=== PATIENT | female | born 1960 | race African-American/Black ===

== ENCOUNTER 2017-06-15 15:53 | Emergency (ER) | payer SELFPAY ==
[2017-06-15] MEDS ORDERED: GLUCAGON 1 MG/ML VIAL IM STA (16:12)
[2017-06-15] MEDS ORDERED: DEXTROSE 50% ABBOJECT 25 GM/50 ML SYRINGE ONE ×2 (16:12→16:41)
[2017-06-15] MEDS ORDERED: ONDANSETRON 4 MG/2 ML VIAL IVP STA (16:13)
[2017-06-15] MEDS ORDERED: SODIUM CHLORIDE 0.9% 1,000 ML IV ONE (16:13)
--- NOTE | 2017-06-15 16:14 | ED Physician Documentation ---
PD HPI NVD - Stated complaint Stated Complaint: LOW BLOOD SUGAR - Chief complaint Chief Complaint: General - History obtained from History obtained from: Patient - History of Present Illness Timing - onset: Yesterday Timing - details: Abrupt onset, Still present Associated symptoms: No: Fever, Abdominal pain, Chest pain, Dysuria Contributing factors: Travel (here on trip to visit caughter/son, will be returning to [place] tomorrow, then home.). No: Sick contact, Bad food Recently seen: Emergency Dept (in [place], [place] couple days ago for low blood sugar at that time.) Review of Systems Constitutional: denies: Fever Nose: denies: Rhinorrhea / runny nose, Congestion Throat: denies: Sore throat Cardiac: denies: Chest pain / pressure, Palpitations, Pedal edema, Calf pain Respiratory: denies: Cough, Wheezing GI: reports: Abdominal Pain, Nausea : denies: Dysuria, Frequency, Discharge Skin: denies: Rash PD PAST MEDICAL HISTORY - Present Medications Home Medications: Ambulatory Orders Medication Instructions Recorded Confirmed Famotidine [Pepcid] 20 mg PO BID #30 tablet 06/15/17 Ondansetron Odt [Zofran] 4 mg TL Q6H PRN #15 tablet 06/15/17 - Allergies Allergies/Adverse Reactions: Allergies Allergy/AdvReac Type Severity Reaction Status Date / Time acetaminophen [From Percocet] Allergy Unknown Verified 06/15/17 16:53 morphine Allergy Unknown Verified 06/15/17 16:53 oxycodone [From Percocet] Allergy Unknown Verified 06/15/17 16:53 PD ED PE NORMAL - Vitals Vital signs reviewed: Yes - General General: Alert and oriented X 3, No acute distress, Well developed/nourished - HEENT HEENT: Ears normal, Pharynx benign. No: Moist mucous membranes - Neck Neck: Supple, no meningeal sign, No bony TTP - Cardiac Cardiac: No murmur, No gallop, No rub, Strong equal pulses - Respiratory Respiratory: Clear bilaterally - Rectal Rectal: Deferred - Back Back: No CVA TTP - Derm Derm: Normal color, Warm and dry - Extremities Extremities: No deformity, No tenderness to palpate, Normal ROM s pain - Neuro Neuro: Alert and oriented X 3, No motor deficit, No sensory deficit, Normal speech Results - Vitals Vitals: Oxygen O2 Source Room air - Labs Labs: Laboratory Tests 06/15/17 06/15/17 06/15/17 16:02 16:45 16:45 WBC 8.4 RBC 4.02 L Hgb 12.7 Hct 39.3 MCV 98.0 MCH 31.6 H MCHC 32.2 RDW 12.9 Plt Count 212 MPV 7.8 L Neut # 7.0 H Lymph # 0.9 L [place] # 0.4 Eos # 0.1 Baso # 0.0 Absolute Nucleated RBC 0.00 Nucleated RBC % 0.0 Sodium 137 Potassium 4.1 Chloride 106 Carbon Dioxide 24 Anion Gap 7.0 BUN 11 Creatinine 1.1 H Estimated GFR (MDRD) 62 L Glucose 224 H POC Whole Bld Glucose 25 L* Calcium 8.3 L Magnesium 1.5 L Total Bilirubin 0.5 AST 18 ALT 17 Alkaline Phosphatase 95 Total Protein 6.4 L Albumin 3.3 Globulin 3.1 Albumin/Globulin Ratio 1.1 Lipase 47 Urine Color Urine Clarity Urine pH Ur Specific [place] Urine Protein Urine Glucose (UA) Urine Ketones Urine Occult Blood Urine Nitrite Urine Bilirubin Urine Urobilinogen Ur Leukocyte Esterase Ur Microscopic Review Urine Culture Comments 06/15/17 06/15/17 06/15/17 17:17 17:31 18:52 WBC RBC Hgb Hct MCV MCH MCHC RDW Plt Count MPV Neut # Lymph # [place] # Eos # Baso # Absolute Nucleated RBC Nucleated RBC % Sodium Potassium Chloride Carbon Dioxide Anion Gap BUN Creatinine Estimated GFR (MDRD) Glucose POC Whole Bld Glucose 68 L 84 Calcium Magnesium Total Bilirubin AST ALT Alkaline Phosphatase Total Protein Albumin Globulin Albumin/Globulin Ratio Lipase Urine Color LIGHT YELLOW Urine Clarity CLEAR Urine pH 6.5 Ur Specific [place] <=1.005 Urine Protein NEGATIVE Urine Glucose (UA) 250 H Urine Ketones NEGATIVE Urine Occult Blood NEGATIVE Urine Nitrite NEGATIVE Urine Bilirubin NEGATIVE Urine Urobilinogen 0.2 (NORMAL) Ur Leukocyte Esterase NEGATIVE Ur Microscopic Review NOT INDICATED Urine Culture Comments NOT INDICATED PD MEDICAL DECISION MAKING - ED course Complexity details: considered differential (has been nauseated with some vomiting, with less intake but still takin gusual insulin. 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 Is feeling better here even with low glucose. Given IV dextrose and then some sugary treats and then protein. No signs of blockage, does not seem ketotic, septic. Consider GE or gastritis. She is maintaining oral intake here, no pains. WIll hold her insulin next dose and then cut it back until oral intake improves. Decrase Lantus while sick. ), d/w patient, d/w family Departure - Departure Disposition: 01 Home, Self Care Clinical Impression: Decreased oral intake, Hypoglycemia Nausea and vomiting Qualifiers: Vomiting type: unspecified Vomiting Intractability: non-intractable Qualified Code(s): R11.2 - Nausea with vomiting, unspecified Condition: Stable Record reviewed to determine appropriate education?: Yes Instructions: ED Nausea Vomiting Prescriptions: Famotidine [Pepcid] 20 mg PO BID #30 tablet Ondansetron Odt [Zofran] 4 mg TL Q6H PRN #15 tablet PRN Reason: Nausea / Vomiting Comments: Your basic blood tests look okay here. I am presuming your nausea and vomiting are from an irritated stomach at this point. I would have you take an acid reducing medicines such as famotidine twice daily for the next week or 2. Add ondansetron if needed for nausea and vomiting. Regular food intake as able. While you are having decreased oral intake, I would decrease your insulin dosing. Hold your Humalog tonight and tomorrow see how your blood sugars are doing. If your blood sugars adequate and you are eating some food then take either the normal dose or a decreased dose such as 3 units instead of 5. I would also decrease your Lantus dose from the 20 units to 10 units for now and as your intake improves increased to 15 units. Follow-up with your primary care in the next several days. Return if worsening symptoms. Discharge Date/Time: 06/15/17 19:38
[2017-06-15] MEDS ORDERED: DEXTROSE 50% ABBOJECT 25 GM/50 ML SYRINGE IVP STA ×2 (16:41→16:42)
[2017-06-15] MEDS ORDERED: GLUCAGON 1 MG/ML VIAL ONE (16:50)
[2017-06-15] MEDS ORDERED: ONDANSETRON 4 MG/2 ML VIAL ONE (16:50)
[2017-06-15] MEDS ORDERED: WATER FOR INJECTION,STERILE 10 ML ONE (16:51)
[2017-06-15 16:55] LABS: BASOPHILS % (AUTO) 0.5 %; EOSINOPHILS # (AUTO) 0.1 10^3/uL (0.0-0.7); EOSINOPHILS % (AUTO) 0.6 %; HCT - HEMATOCRIT 39.3 % (37.0-47.0); HGB - HEMOGLOBIN 12.7 g/dL (12.0-16.0); LYMPHOCYTES # (AUTO) 0.9 10^3/uL (1.5-3.5); MEAN CORPUSCULAR HEMOGLOBIN 31.6 pg (27.0-31.0); MEAN CORPUSCULAR HGB CONC 32.2 g/dL (32.0-36.0); MEAN PLATELET VOLUME 7.8 fL (7.9-10.8); MONOCYTES # (AUTO) 0.4 10^3/uL (0.0-1.0); MONOCYTES % (AUTO) 5.1 %; NEUTROPHILS % (AUTO) 82.8 %; RED BLOOD COUNT 4.02 10^6/uL (4.20-5.40); RED CELL DISTRIBUTION WIDTH 12.9 % (12.0-15.0); UNCORRECTED WHITE BLOOD COUNT 8.4 x10^3/uL; WHITE BLOOD COUNT 8.4 x10^3/uL (4.8-10.8)
[2017-06-15 17:07] LABS: ALBUMIN/GLOBULIN RATIO 1.1 (1.0-2.2); BILIRUBIN,TOTAL 0.5 mg/dL (0.2-1.0); CALCIUM 8.3 mg/dL (8.5-10.3); CREATININE 1.1 mg/dL (0.4-1.0); MAGNESIUM 1.5 mg/dL (1.7-2.8); POTASSIUM 4.1 mmol/L (3.5-5.0); TOTAL PROTEIN 6.4 g/dL (6.7-8.2)
[2017-06-15 17:23] LABS: BILIRUBIN,URINE NEGATIVE (NEGATIVE); PH,URINE 6.5 PH (5.0-7.5)
[2017-06-15 17:24] LABS: UA CHARGE (STRIP ONLY) YES; UR CULTURE IF IND NOT INDICATED
[2017-06-15] MEDS ORDERED: FAMOTIDINE 20 MG TABLET PO STA (18:08)
[2017-06-15] MEDS ORDERED: FAMOTIDINE 20 MG TABLET ONE (18:20)
[2017-06-15 19:16] VITALS: BP 118/72
== END 2017-06-15 19:38 | disposition home or self-care (01) ==
LOC: ED 15:53
DX: R11.2 Nausea with vomiting, unspecified (principal)
CPT/HCPCS: 36415; 80053; 81003; 83690; 83735; 85025; 96361; 96374; 99284; A9270; 81001; 87086

== ENCOUNTER 2019-02-26 15:30 | Emergency (ER) | payer MEDICAID, OTHER ==
--- NOTE | 2019-02-26 16:03 | ED Physician Documentation ---
PD HPI HEENT - Stated complaint Stated Complaint: BLURRY VISION - Chief complaint Chief Complaint: General - History obtained from History obtained from: Patient - History of Present Illness Timing - onset: How many weeks ago (has been feeling blurred vision and very thirsty for couple of weeks. She says her diet has been poor recently. Has history of diabetes and was on insulin Lantus 30 units, Humolog 5 units plus sliding scale. Has been off insulin for a year or so as blood sugars were doing well. Has not checked sugars in months. Feeling sugars high clinicially the past couple weeks.) Timing - duration: Weeks (2) Timing - details: Gradual onset, Waxing and waning Location: Other (blurred vision and feeling of thirsty/urinating a lot for couple weeks, worse the past few days.) Associated symptoms: No: Fever, Congestion Recently seen: Not recently seen Review of Systems Constitutional: denies: Fever, Myalgias Nose: denies: Rhinorrhea / runny nose, Congestion Throat: denies: Sore throat Cardiac: denies: Chest pain / pressure, Palpitations Respiratory: denies: Dyspnea, Cough GI: denies: Nausea, Vomiting, Diarrhea : reports: Frequency Musculoskeletal: denies: Extremity swelling Neurologic: reports: Generalized weakness. denies: Focal weakness, Numbness Endocrine: reports: Polydypsia, Polyuria PD PAST MEDICAL HISTORY - Past Medical History Cardiovascular: None Respiratory: None Neuro: None Endocrine/Autoimmune: Type 2 diabetes GI: None : Renal insuffiency (with dialysis until renal transplant 9 years ago, doing well. ), Other - Past Surgical History Past Surgical History: Yes General: Appendectomy - Present Medications Home Medications: Ambulatory Orders Medication Instructions Recorded Confirmed Famotidine [Pepcid] 20 mg PO BID #30 tablet 06/15/17 Ondansetron Odt [Zofran] 4 mg TL Q6H PRN #15 tablet 06/15/17 Blood Sugar Diagnostic [Glucometer 1 each MC BID #100 strip 02/26/19 Strips] Insulin Glargine [Lantus Solostar] 10 unit SQ DAILY #1 pen 02/26/19 Insulin Lispro [Humalog Kwikpen 5 unit SUBQ BID #1 each 02/26/19 U-100] - Allergies Allergies/Adverse Reactions: Allergies Allergy/AdvReac Type Severity Reaction Status Date / Time acetaminophen [From Percocet] Allergy Unknown Verified 02/26/19 15:51 morphine Allergy Unknown Verified 02/26/19 15:51 oxycodone [From Percocet] Allergy Unknown Verified 02/26/19 15:51 - Social History Does the pt smoke?: No Smoking Status: Never smoker PD ED PE NORMAL - Vitals Vital signs reviewed: Yes - General General: Alert and oriented X 3, No acute distress, Well developed/nourished - HEENT HEENT: Pharynx benign - Neck Neck: Supple, no meningeal sign, No adenopathy - Cardiac Cardiac: RRR (mild tachycardia), No murmur - Respiratory Respiratory: Clear bilaterally - Abdomen Abdomen: Normal bowel sounds, Soft, Non tender, Non distended - Back Back: No CVA TTP - Derm Derm: Normal color, Warm and dry - Extremities Extremities: Normal ROM s pain, No edema, No calf tenderness / cord - Neuro Neuro: Alert and oriented X 3, No motor deficit, Normal speech Results - Vitals Vitals: Vital Signs - 24 hr 02/26/19 02/26/19 02/26/19 15:44 15:46 19:04 Temperature 36.3 C L 36.3 C L 36.4 C L Heart Rate 101 H 101 H 92 Respiratory 18 19 16 Rate Blood Pressure 120/62 125/86 H 129/80 O2 Saturation 98 98 98 Oxygen O2 Source Room air - Labs Labs: Laboratory Tests 02/26/19 02/26/19 02/26/19 16:47 16:47 16:47 WBC 7.6 RBC 3.86 L Hgb 12.4 Hct 38.4 MCV 99.5 H MCH 32.1 H MCHC 32.3 RDW 13.8 Plt Count 230 MPV 11.1 H Neut # (Auto) 5.8 Lymph # (Auto) 1.3 L [place] # (Auto) 0.5 Eos # (Auto) 0.0 Baso # (Auto) 0.0 Absolute Nucleated RBC 0.00 Nucleated RBC % 0.0 VBG pH 7.381 VBG pCO2 35.6 L VBG pO2 76.5 H VBG HCO3 20.6 L VBG Total CO2 21.7 L VBG O2 Saturation 94.2 H VBG Base Excess -3.8 L Sodium 130 L Potassium 5.0 Chloride 97 L Carbon Dioxide 20 L Anion Gap 13.0 BUN 18 Creatinine 0.9 Estimated GFR (MDRD) 78 L Glucose 754 H* POC Whole Bld Glucose Calcium 8.7 Magnesium 1.7 Total Bilirubin 0.5 AST 25 ALT 39 Alkaline Phosphatase 237 H Total Protein 7.8 Albumin 3.5 Globulin 4.3 H Albumin/Globulin Ratio 0.8 L Lipase 141 H Serum Ketones NEGATIVE 02/26/19 17:44 WBC RBC Hgb Hct MCV MCH MCHC RDW Plt Count MPV Neut # (Auto) Lymph # (Auto) [place] # (Auto) Eos # (Auto) Baso # (Auto) Absolute Nucleated RBC Nucleated RBC % VBG pH VBG pCO2 VBG pO2 VBG HCO3 VBG Total CO2 VBG O2 Saturation VBG Base Excess Sodium Potassium Chloride Carbon Dioxide Anion Gap BUN Creatinine Estimated GFR (MDRD) Glucose POC Whole Bld Glucose 482 H Calcium Magnesium Total Bilirubin AST ALT Alkaline Phosphatase Total Protein Albumin Globulin Albumin/Globulin Ratio Lipase Serum Ketones PD MEDICAL DECISION MAKING - ED course Complexity details: reviewed results, re-evaluated patient (feeling okay still, with IV fluids and given insulin IV to get her BS lower. No signs of ketosis on urine/blood. ), considered differential (High blood sugar and will need to resume her prior insulin regimen (had not needed to be on it for a year or so; unsure how long blood sugars have been high, but seems like the current high of 700s has been just the past week, based on symptoms. 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 We will start with low doses and we can increase it which would be much better than ended up with too low of a blood sugar. Humalog 5 units twice daily before breakfast and dinner and measure your fingerstick sugar before use. Hold for blood sugar less than 100. Lantus 10 units daily. Follow-up with your new kidney specialist this coming week as planned. Continue your other usual medications. Check your blood sugars twice daily and record them and see how your medicines are doing and they can be increased upward as needed. Discharge Date/Time: 02/26/19 19:04
[2019-02-26] MEDS ORDERED: SODIUM CHLORIDE 0.9% 1,000 ML IV ONE ×2 (16:17→16:20)
[2019-02-26] MEDS ORDERED: INSULIN REGULAR HUMAN 100 UNIT/1 ML 10 ML MDV IVP STA ×2 (16:17→18:19)
[2019-02-26 16:55] LABS: VBG PCO2 35.6 mmHg (41-51); VBG PH 7.381 (7.31-7.41); VBG PO2 76.5 mmHg (25-47)
[2019-02-26 16:56] LABS: BASOPHILS % (AUTO) 0.1 %; HGB - HEMOGLOBIN 12.4 g/dL (12.0-16.0); LYMPHOCYTES # (AUTO) 1.3 10^3/uL (1.5-3.5); LYMPHOCYTES % (AUTO) 17.1 %; MEAN CORPUSCULAR HEMOGLOBIN 32.1 pg (27.0-31.0); MEAN CORPUSCULAR HGB CONC 32.3 g/dL (32.0-36.0); MEAN CORPUSCULAR VOLUME 99.5 fL (81.0-99.0); MEAN PLATELET VOLUME 11.1 fL (7.9-10.8); MONOCYTES # (AUTO) 0.5 10^3/uL (0.0-1.0); MONOCYTES % (AUTO) 6.3 %; NEUTROPHILS # (AUTO) 5.8 10^3/uL (1.5-6.6); NEUTROPHILS % (AUTO) 76.2 %; PLT - PLATELET COUNT 230 10^3/uL (130-450); RED BLOOD COUNT 3.86 10^6/uL (4.20-5.40); RED CELL DISTRIBUTION WIDTH 13.8 % (12.0-15.0); VBG BASE EXCESS -3.8 mmol/L (-2 - +2); VBG TOTAL CO2 21.7 mmol/L (24-29); WHITE BLOOD COUNT 7.6 x10^3/uL (4.8-10.8)
[2019-02-26 17:08] LABS: KETONES, SERUM (ACETEST) NEGATIVE (NEGATIVE)
[2019-02-26 17:12] LABS: ALBUMIN 3.5 g/dL (3.2-5.5); ALBUMIN/GLOBULIN RATIO 0.8 (1.0-2.2); ALKALINE PHOSPHATASE 237 IU/L (42-121); ALT ALANINE AMINOTRANSFERASE 39 IU/L (10-60); AST ASPARTATE AMINOTRANSFERASE 25 IU/L (10-42); BILIRUBIN,TOTAL 0.5 mg/dL (0.2-1.0); BUN - BLOOD UREA NITROGEN 18 mg/dL (6-20); CALCIUM 8.7 mg/dL (8.5-10.3); CARBON DIOXIDE - CO2 20 mmol/L (21-32); CHLORIDE 97 mmol/L (101-111); CREATININE 0.9 mg/dL (0.4-1.0); GFR - MDRD 78 (>89); LIPASE 141 U/L (22-51); MAGNESIUM 1.7 mg/dL (1.7-2.8); SODIUM 130 mmol/L (135-145); TOTAL PROTEIN 7.8 g/dL (6.7-8.2)
[2019-02-26 17:13] LABS: GLUCOSE 754 mg/dL (70-100)
[2019-02-26 19:05] VITALS: BP 129/80
== END 2019-02-26 19:04 | disposition home or self-care (01) ==
LOC: ED 15:30
DX: E11.9 Type 2 diabetes mellitus without complications (principal)
CPT/HCPCS: 80053; 82009; 82803; 83690; 83735; 85025; 96360; 96361; 99283; J1815